=== PATIENT | male | born 1955 | race Caucasian/White ===

== ENCOUNTER → 2019-10-20 07:58 | Outpatient (CLI) | payer OTHER, SELFPAY ==
--- NOTE | 2019-10-20 | DI.NM.S_ITS ---
PROCEDURE: NM ABE PERF SPECT REST & STR Rest and exercise myocardial perfusion SPECT with gated imaging and ejection fraction RADIOPHARMACEUTICAL: 25.5 mCi Tc-99m sestamibi IV at rest and 25.5 mCi Tc-99m sestamibi IV at peak exercise. A two day-protocol was performed. INDICATIONS: Chest pain, unspecified TECHNIQUE: Radiopharmaceutical was injected at peak stress test, and also at rest. SPECT images were obtained. SPECT myocardial perfusion images were displayed in short axis, horizontal long axis, and vertical long axis views. Gated images were reviewed using Pix4D software. COMPARISON: None. CARDIAC STRESS: A standard Yared treadmill exercise tolerance test was performed by the patient under the supervision of an attending staff. The patient exercised for 12 minutes and 59 seconds; functional aerobic impairment (SEAN) is -49%. Hemodynamic data: There is normal blood pressure and heart rate response to exercise stress. Patient achieved 105% of maximum predicted heart rate at peak exercise. Symptoms: Patient denied chest pain during exercise. EKG: No diagnostic EKG changes of ischemia; no ectopy. FINDINGS: Raw data: There is good myocardial labeling by radiotracer. No significant motion artifacts. Frph-bk-fohkn ratio is 0.27 (normal is less than 0.38 for sestamibi tracer, and less than 0.50 for thallium tracer). Left ventricle function: Gated images demonstrate normal left ventricle wall thickening. No segmental wall motion abnormality. No transient ischemic dilation; TID is 0.94 (normal less than 1.3). The left ventricle resting end-diastolic volume is 188 mL. Left ventricle stress ejection fraction is 66%; normal values are above 45%. Myocardial perfusion: There is normal distribution of activity in the left and right ventricular myocardium. No fixed or reversible perfusion defects. IMPRESSION: Low risk, normal treadmill nuclear stress test. Mildly enlarged left ventricle. 1) No perfusion evidence of ischemia of infarction. 2) Mildly increased left ventricular size (resting EDV 188cc) with normal wall motion, and normal systolic function (EF post stress 66%). 3) No ECG evidence of ischemia. 4) No angina during the study. 5) Excellent exercise tolerance (14.8 METs, SEAN -49%). Target heart rate achieved. 6) No prior nuclear stress test available for comparison. Dictated by: Leslie Rice MD on 10/24/2019 at 14:43 Approved by: Leslie Rice MD on 10/24/2019 at 14:46
== END ==
PROVIDERS: PCP Internal Medicine; Referring Provider Internal Medicine; Visit Provider Internal Medicine
DX: R07.9 Chest pain, unspecified (principal)
CPT/HCPCS: 78452; 93016; 93017; 93018; A9502

== ENCOUNTER → 2020-06-15 15:57 | Outpatient (CLI) | payer OTHER, SELFPAY ==
--- NOTE | 2020-06-15 | DI.RAD.S_ITS ---
PROCEDURE: XR BONE LENGTH SCANOGRAM INDICATIONS: Leg Length Different After Knee Replacement TECHNIQUE: A single frontal standing view of both lower extremities acquired, with measuring ruler situated between the legs. COMPARISON: None. FINDINGS: Right: Total leg length is 98 cm. Right knee total arthroplasty. Left: Total leg length is 96.5 cm. Aurora in the medial malleolus. IMPRESSION: The left leg is 1.5 cm shorter than the right. Dictated by: Mamadou Early M.D. on 06/15/2020 at 16:57 Approved by: Mamadou Early M.D. on 06/15/2020 at 17:00
== END ==
PROVIDERS: PCP Internal Medicine; Referring Provider Chiropractor Neurology; Visit Provider Chiropractor Neurology
DX: T84.89XA Other specified complication of internal orthopedic prosthetic devices, implants and grafts, initial encounter (principal); M21.70 Unequal limb length (acquired), unspecified site; M54.9 Dorsalgia, unspecified; Z96.651 Presence of right artificial knee joint
CPT/HCPCS: 77073

== ENCOUNTER → 2021-07-15 13:59 | Outpatient (CLI) | payer OTHER, SELFPAY ==
[2021-07-15 16:38] LABS: COVID19 -Nasal RAPID Negative (Negative)
== END ==
PROVIDERS: PCP Internal Medicine; Referring Provider Physician Assistant; Visit Provider Physician Assistant
DX: Z20.822 Contact with and (suspected) exposure to COVID-19 (principal)
CPT/HCPCS: 87635

== ENCOUNTER → 2021-09-02 14:25 | Outpatient (CLI) | payer OTHER, SELFPAY ==
[2021-09-02 19:25] LABS: COVID19 -Nasal RAPID POSITIVE (Negative)
== END ==
PROVIDERS: PCP Internal Medicine; Referring Provider Physician Assistant; Visit Provider Physician Assistant
DX: U07.1 COVID-19 (principal); Z20.822 Contact with and (suspected) exposure to COVID-19
CPT/HCPCS: 87635